=== PATIENT | male | born 1990 | race Caucasian/White ===

== ENCOUNTER 2017-06-15 16:07 | Inpatient (IN) | payer OTHER ==
[~2017-06-15] VITALS: Ht 182.9 cm; Wt 73.4 kg
[2017-06-15] MEDS ORDERED: REGULAR INSULIN 62.5 UNITS in SODIUM CHLORIDE 0.9% 249.375 ML IV PRN ×2 (16:09→18:42)
[2017-06-15] MEDS: PLEASE ENTER ALLERGIES MC SCH (16:30)
[2017-06-15] MEDS ORDERED: SODIUM CHLORIDE 0.9% 1,000ML IVBOLUS ONE ×3 (16:30→20:30)
[2017-06-15 16:35] LABS: FIO2 RA %
[2017-06-15 16:36] LABS: ALANINE AMINOTRANSFERASE 19 U/L (12-78); ALBUMIN 3.9 g/dL (3.4-5.0); ANION GAP 31 mmol/L (5-15); CALCIUM 7.9 mg/dL (8.5-10.1); CHLORIDE 94 mmol/L (98-107)
[2017-06-15 16:39] LABS: ALKALINE PHOSPHATASE 221 U/L (45-117); BILIRUBIN,TOTAL 0.5 mg/dL (0.2-1.0); CREATININE 2.71 mg/dL (0.7-1.3); TOTAL PROTEIN 7.6 g/dL (6.4-8.2)
[2017-06-15 16:50] LABS: MD YES; MEAN CORPUSCULAR HEMOGLOBIN 31.7 pg (27.5-34.5); MEAN CORPUSCULAR HGB CONC 31.9 g/dL (33.2-36.2); MEAN CORPUSCULAR VOLUME 99.4 fL (81-97); MEAN PLATELET VOLUME 14.1 fL (7.4-10.4); PLATELET COUNT 367 x10^3/uL (130-400); RED CELL DISTRIBUTION WIDTH 13.1 % (9.4-14.8)
[2017-06-15 16:58] LABS: BAND#(MANUAL) 7.77 x10^3/uL; BANDS%(MANUAL) 13 % (0-7); EOS% (MANUAL) 1 % (1-7); LYMPH#(MANUAL) 2.99 x10^3/uL (1-3.4); LYMPHS% (MANUAL) 5 % (22-44); METAMYELOCYTES% (MANUAL) 1 % (0-1); MONOS#(MANUAL) 4.19 x10^3/uL (0.3-2.7); MONOS% (MANUAL) 7 % (2-9); MYELOCYTES% (MANUAL) 1 % (0-0); PMNS WITH VACUOLES 1+; SEG#(MANUAL) 43.06 x10^3/uL (1.8-6.8); SEGS% (MANUAL) 72 % (42-75)
[2017-06-15 16:59] LABS: <PLATELET ESTIMATE> ADEQUATE; LARGE PLATELETS 1+
[2017-06-15 17:03] LABS: ACETONE, SERUM Large (80mg/dL) mg/dL (Negative)
[2017-06-15 17:15] LABS: AMPHETAMINE SCREEN, URINE Negative (Negative); BARBITURATE SCREEN, URINE Negative (Negative); BENZODIAZEPINE SCREEN, URINE Negative (Negative); CANNABINOID SCREEN, URINE Negative (Negative); COCAINE SCREEN, URINE Negative (Negative); METHADONE SCREEN, URINE Negative (Negative); OPIATE SCREEN, URINE Negative (Negative)
[2017-06-15] MEDS ORDERED: SODIUM CHLORIDE 0.9% 1,000 ML IV SCH (17:30)
[2017-06-15 17:33] LABS: MICROSCOPIC INDICATED
[2017-06-15 17:40] LABS: CULTURE INDICATED? NO
[2017-06-15 18:11] LABS: FIO2 RA %
[2017-06-15 18:23] LABS: CALCIUM 6.7 mg/dL (8.5-10.1); CHLORIDE 105 mmol/L (98-107)
[2017-06-15 18:59] LABS: ANION GAP 29 mmol/L (5-15)
[2017-06-15] MEDS ORDERED: DOCUSATE 100 MG CAPSULE PO PRN (19:00)
[2017-06-15] MEDS ORDERED: PROMETHAZINE 25 MG/ML, 1ML IM PRN (19:00)
[2017-06-15] MEDS ORDERED: POLYETHYLENE GLYCOL 17 GM PACKET PO PRN (19:00)
[2017-06-15] MEDS ORDERED: OXYcodone IR 5MG TABLET PO PRN (19:00)
[2017-06-15] MEDS ORDERED: ACETAMINOPHEN 325 MG TABLET PO PRN (19:00)
[2017-06-15] MEDS ORDERED: morphine SULFATE 10 MG/ML, 1ML IVPush PRN (19:00)
[2017-06-15] MEDS ORDERED: SODIUM POLY SULFONATE UDC 15 GM/60 ML PO ONE (19:30)
[2017-06-15] MEDS ORDERED: CALCIUM CHLORIDE 10%, 10ML SYR IVPush ONE (19:30)
[2017-06-15 20:09] LABS: HEMOGLOBIN A1C 11.5 % (4.2-6.3)
[2017-06-15] MEDS: SODIUM CHLORIDE 0.9% 1,000 ML IV SCH ×2 (20:35→23:09)
[2017-06-15] MEDS: METRONIDAZOLE PMX 500MG/100ML 100 ML IV SCH (20:35)
[2017-06-15 20:58] LABS: ANION GAP 27 mmol/L (5-15); CALCIUM 6.8 mg/dL (8.5-10.1); CHLORIDE 106 mmol/L (98-107); CREATININE 2.18 mg/dL (0.7-1.3)
[2017-06-15] MEDS: HEPARIN 5,000 UNITS/ML, 1ML SQ SCH (21:19)
[2017-06-15] MEDS ORDERED: SODIUM BICARBONATE 1 MEQ/ML, 50ML VIAL ONE (21:23)
[2017-06-15] MEDS ORDERED: SODIUM BICARB 8.4%, 50ML SYRINGE IVPush ONE (21:30)
[2017-06-15] MEDS: CEFTRIAXONE PMX 1GM/50ML 50 ML IV SCH (22:14)
[2017-06-16] MEDS: FAMOTIDINE 20 MG TABLET PO SCH ×2 (00:11→09:41)
[2017-06-16] MEDS: PLEASE ENTER ALLERGIES MC SCH (00:30)
[2017-06-16 01:54] LABS: ANION GAP 24 mmol/L (5-15); CALCIUM 7.3 mg/dL (8.5-10.1); CHLORIDE 117 mmol/L (98-107); CREATININE 2.21 mg/dL (0.7-1.3)
[2017-06-16 02:15] VITALS: BP 102/51
[2017-06-16] MEDS: ONDANSETRON 2MG/ML, 2ML IVPush PRN ×3 (02:49→20:16)
[2017-06-16] MEDS: METRONIDAZOLE PMX 500MG/100ML 100 ML IV SCH ×4 (02:52→20:18)
[2017-06-16] MEDS: SODIUM CHLORIDE 0.9% 1,000 ML IV SCH (03:25)
[2017-06-16 03:59] VITALS: BP 115/76
[2017-06-16] MEDS: HEPARIN 5,000 UNITS/ML, 1ML SQ SCH ×3 (04:14→20:16)
[2017-06-16 05:07] LABS: CHLORIDE 121 mmol/L (98-107)
[2017-06-16 05:27] LABS: ALANINE AMINOTRANSFERASE 12 U/L (12-78); ALBUMIN 2.7 g/dL (3.4-5.0); ALKALINE PHOSPHATASE 87 U/L (45-117); ANION GAP 18 mmol/L (5-15); BILIRUBIN,TOTAL 0.5 mg/dL (0.2-1.0); CALCIUM 7.1 mg/dL (8.5-10.1); CHOL/HDL RATIO 2.3; CHOLESTEROL, TOTAL 81 mg/dL (140-239); CREATININE 2.17 mg/dL (0.7-1.3); HDL CHOL % 44 % (26-37); HDL CHOLESTEROL (DIRECT) 36 mg/dL (40-60); LDL CHOLESTEROL,CALCULATED 13 mg/dL (54-169); LDL/HDL RATIO 0.4 (0.5-3.0); TOTAL PROTEIN 5.4 g/dL (6.4-8.2); TRIGLYCERIDES 158 mg/dL (50-200); VLDL CHOLESTEROL 32 mg/dL (0-25)
[2017-06-16 05:57] LABS: MEAN CORPUSCULAR HEMOGLOBIN 32.5 pg (27.5-34.5); MEAN CORPUSCULAR HGB CONC 34.2 g/dL (33.2-36.2); MEAN PLATELET VOLUME 11.8 fL (7.4-10.4); PLATELET COUNT 168 x10^3/uL (130-400); RED BLOOD COUNT 4.45 x10^6/uL (4.38-5.82); RED CELL DISTRIBUTION WIDTH 12.6 % (9.4-14.8)
[2017-06-16 06:19] LABS: MD YES
[2017-06-16 06:22] LABS: BAND#(MANUAL) 4.09 x10^3/uL; BANDS%(MANUAL) 18 % (0-7); LYMPH#(MANUAL) 0.23 x10^3/uL (1-3.4); LYMPHS% (MANUAL) 1 % (22-44); METAMYELOCYTES# (MANUAL) 0.68 x10^3/uL (0-0); METAMYELOCYTES% (MANUAL) 3 % (0-1); MONOS#(MANUAL) 2.04 x10^3/uL (0.3-2.7); MONOS% (MANUAL) 9 % (2-9); SEG#(MANUAL) 15.66 x10^3/uL (1.8-6.8); SEGS% (MANUAL) 69 % (42-75)
[2017-06-16 06:25] LABS: <PLATELET ESTIMATE> ADEQUATE; <RBC MORPHOLOGY> NORMAL
[2017-06-16 06:26] LABS: <PLT MORPHOLOGY> NORMAL PLT MORPH
[2017-06-16] MEDS ORDERED: POTASSIUM PHOSPHATE 22 MEQ in SODIUM CHLORIDE 0.9% 500 ML IV ONE (07:00)
[2017-06-16] MEDS: SENNA/DOCUSATE TABLET PO SCH (09:00)
[2017-06-16 09:22] LABS: FIO2 ROOM AIR %
[2017-06-16 09:28] LABS: ANION GAP 9 mmol/L (5-15); CALCIUM 6.9 mg/dL (8.5-10.1); CHLORIDE 125 mmol/L (98-107); CREATININE 2.43 mg/dL (0.7-1.3)
[2017-06-16] MEDS: D5%-0.45NACL+KCL 20MEQ 1,000 ML IV SCH ×2 (09:40→16:53)
[2017-06-16] MEDS: POTASSIUM CHLORIDE 20 MEQ TAB.ER.PRT PO SCH ×2 (09:41→16:53)
[2017-06-16] MEDS ORDERED: POTASSIUM CHLORIDE 20 MEQ TAB.ER.PRT PO ONE ×2 (11:00→18:00)
[2017-06-16 13:07] LABS: ANION GAP 10 mmol/L (5-15); CALCIUM 7.1 mg/dL (8.5-10.1); CHLORIDE 124 mmol/L (98-107); CREATININE 2.46 mg/dL (0.7-1.3)
[2017-06-16] MEDS: REGULAR INSULIN 62.5 UNITS in SODIUM CHLORIDE 0.9% 249.375 ML IV PRN (13:27)
[2017-06-16 17:41] LABS: ANION GAP 14 mmol/L (5-15); CALCIUM 6.8 mg/dL (8.5-10.1); CHLORIDE 122 mmol/L (98-107); CREATININE 2.36 mg/dL (0.7-1.3)
[2017-06-16] MEDS: CEFTRIAXONE PMX 1GM/50ML 50 ML IV SCH (20:18)
[2017-06-16 21:27] LABS: ANION GAP 14 mmol/L (5-15); CALCIUM 6.6 mg/dL (8.5-10.1); CHLORIDE 117 mmol/L (98-107); CREATININE 2.35 mg/dL (0.7-1.3)
[2017-06-16] MEDS ORDERED: POTASSIUM CHLORIDE 40 MEQ in SODIUM CHLORIDE 0.9% 500 ML IV ONE (22:30)
[2017-06-17 01:36] LABS: ANION GAP 12 mmol/L (5-15); CALCIUM 6.7 mg/dL (8.5-10.1); CHLORIDE 120 mmol/L (98-107); CREATININE 2.31 mg/dL (0.7-1.3)
[2017-06-17 02:19] LABS: CLOSTRIDIUM DIFFICILE ANTIGEN NEGATIVE; CLOSTRIDIUM DIFFICILE TOXIN NEGATIVE (Negative)
[2017-06-17] MEDS: METRONIDAZOLE PMX 500MG/100ML 100 ML IV SCH ×4 (02:23→20:55)
[2017-06-17] MEDS: D5%-0.45NACL+KCL 20MEQ 1,000 ML IV SCH ×2 (02:23→09:53)
[2017-06-17] MEDS: HEPARIN 5,000 UNITS/ML, 1ML SQ SCH ×2 (02:25→10:47)
[2017-06-17] MEDS ORDERED: POTASSIUM CHLORIDE 40 MEQ in SODIUM CHLORIDE 0.9% 500 ML IV ONE (03:00)
[2017-06-17] MEDS: REGULAR INSULIN 62.5 UNITS in SODIUM CHLORIDE 0.9% 249.375 ML IV PRN (03:24)
[2017-06-17 05:07] LABS: MEAN CORPUSCULAR HGB CONC 34.6 g/dL (33.2-36.2); MEAN CORPUSCULAR VOLUME 95.2 fL (81-97); MEAN PLATELET VOLUME 11.8 fL (7.4-10.4); PLATELET COUNT 135 x10^3/uL (130-400); RED BLOOD COUNT 3.85 x10^6/uL (4.38-5.82); RED CELL DISTRIBUTION WIDTH 13.2 % (9.4-14.8)
[2017-06-17 05:12] LABS: ANION GAP 8 mmol/L (5-15); CALCIUM 6.6 mg/dL (8.5-10.1); CHLORIDE 125 mmol/L (98-107); CREATININE 2.25 mg/dL (0.7-1.3)
[2017-06-17 05:45] LABS: MD YES
[2017-06-17 05:46] LABS: BAND#(MANUAL) 0.31 x10^3/uL; BANDS%(MANUAL) 2 % (0-7); LYMPH#(MANUAL) 1.25 x10^3/uL (1-3.4); LYMPHS% (MANUAL) 8 % (22-44); MONOS#(MANUAL) 1.09 x10^3/uL (0.3-2.7); MONOS% (MANUAL) 7 % (2-9); SEG#(MANUAL) 12.95 x10^3/uL (1.8-6.8); SEGS% (MANUAL) 83 % (42-75)
[2017-06-17 05:47] LABS: <RBC MORPHOLOGY> NORMAL
[2017-06-17 05:48] LABS: <PLATELET ESTIMATE> ADEQUATE; LARGE PLATELETS 1+
[2017-06-17] MEDS: SENNA/DOCUSATE TABLET PO SCH (07:35)
[2017-06-17 09:11] LABS: ANION GAP 13 mmol/L (5-15); CALCIUM 6.6 mg/dL (8.5-10.1); CHLORIDE 119 mmol/L (98-107); CREATININE 2.17 mg/dL (0.7-1.3)
[2017-06-17 13:20] LABS: ANION GAP 10 mmol/L (5-15); CALCIUM 6.7 mg/dL (8.5-10.1); CHLORIDE 121 mmol/L (98-107); CREATININE 2.41 mg/dL (0.7-1.3)
[2017-06-17] MEDS ORDERED: POTASSIUM CHLORIDE 20 MEQ PACKET PO ONE (14:00)
[2017-06-17 17:01] LABS: CRYPTOSPORIDIUM ANTIGEN Negative (Negative)
[2017-06-17 17:11] LABS: ANION GAP 9 mmol/L (5-15); CALCIUM 6.9 mg/dL (8.5-10.1); CHLORIDE 123 mmol/L (98-107); CREATININE 2.19 mg/dL (0.7-1.3)
[2017-06-17] MEDS ORDERED: ASPIRIN 81 MG TABLET CHEW ONE (17:32)
[2017-06-17] MEDS ORDERED: METOPROLOL TARTRATE 25 MG TABLET ONE (17:32)
[2017-06-17] MEDS: METOPROLOL TARTRATE 25 MG TABLET PO SCH (17:35)
[2017-06-17] MEDS: ASPIRIN 81 MG TABLET CHEW PO SCH (17:36)
[2017-06-17] MEDS ORDERED: HEPARIN 5,000 UNITS/ML, 1ML IV PRN (18:00)
[2017-06-17] MEDS ORDERED: HEPARIN 25,000 UNITS/500ML PMX 500 ML IV PRN (18:00)
[2017-06-17] MEDS ORDERED: POTASSIUM CHLORIDE 10% 40 MEQ/30 ML UDC PO ONE (18:00)
[2017-06-17] MEDS: INSULIN LISPRO 100 UNITS/ML, PEN SQ-INSULIN SCH ×2 (18:00→20:58)
[2017-06-17] MEDS ORDERED: HEPARIN 5,000 UNITS/ML, 1ML IV ONE (18:00)
[2017-06-17] MEDS: SODIUM BICARB 8.4%,50ML SYR. 50 MEQ in SODIUM CHLORIDE 0.45% 1,000 ML IV SCH (18:09)
[2017-06-17] MEDS: ONDANSETRON 2MG/ML, 2ML IVPush PRN (18:12)
[2017-06-17] MEDS ORDERED: POTASSIUM CHLORIDE 10% 20 MEQ/15 ML UDC PO ONE (18:30)
[2017-06-17] MEDS: ATORVASTATIN 20 MG TABLET PO SCH (20:55)
[2017-06-17] MEDS: INSULIN DETEMIR 100 UNITS/ML, PEN SQ-INSULIN SCH (20:57)
[2017-06-17] MEDS ORDERED: INSULIN GLARGINE 100 UNITS/ML, PEN SQ-INSULIN SCH (21:00)
[2017-06-17 21:47] LABS: ANION GAP 15 mmol/L (5-15); CHLORIDE 116 mmol/L (98-107); CREATININE 2.02 mg/dL (0.7-1.3)
[2017-06-18 01:05] LABS: ANION GAP 12 mmol/L (5-15); CHLORIDE 116 mmol/L (98-107); CREATININE 2.18 mg/dL (0.7-1.3)
[2017-06-18] MEDS: METRONIDAZOLE PMX 500MG/100ML 100 ML IV SCH ×4 (02:39→20:27)
[2017-06-18 04:21] LABS: MEAN CORPUSCULAR HEMOGLOBIN 32.7 pg (27.5-34.5); MEAN CORPUSCULAR HGB CONC 34.5 g/dL (33.2-36.2); MEAN CORPUSCULAR VOLUME 94.8 fL (81-97); MEAN PLATELET VOLUME 12.9 fL (7.4-10.4); PLATELET COUNT 116 x10^3/uL (130-400); RED CELL DISTRIBUTION WIDTH 13.1 % (9.4-14.8)
[2017-06-18 04:28] LABS: ANION GAP 11 mmol/L (5-15); CALCIUM 6.5 mg/dL (8.5-10.1); CHLORIDE 119 mmol/L (98-107); CREATININE 2.07 mg/dL (0.7-1.3)
[2017-06-18] MEDS: SODIUM BICARB 8.4%,50ML SYR. 50 MEQ in SODIUM CHLORIDE 0.45% 1,000 ML IV SCH ×2 (04:41→16:33)
[2017-06-18 05:23] LABS: BASOPHILS # (AUTO) 0.02 x10^3/uL (0-0.1); BASOPHILS % (AUTO) 0 % (0-1); EOSINOPHILS # (AUTO) 0.01 x10^3/uL (0-0.4); EOSINOPHILS % (AUTO) 0 % (1-7); LYMPHOCYTES # (AUTO) 1.86 x10^3/uL (1-3.4); LYMPHOCYTES % (AUTO) 16 % (22-44); MD SCAN; MONOCYTES # (AUTO) 1.57 x10^3/uL (0.2-0.8); MONOCYTES % (AUTO) 13 % (2-9); NEUTROPHILS # (AUTO) 8.31 x10^3/uL (1.8-6.8); NEUTROPHILS % (AUTO) 71 % (42-75)
[2017-06-18] MEDS: METOPROLOL TARTRATE 25 MG TABLET PO SCH ×2 (06:02→18:14)
[2017-06-18] MEDS: SENNA/DOCUSATE TABLET PO SCH (07:22)
[2017-06-18] MEDS ORDERED: CLOPIDOGREL 75 MG TABLET ONE (07:31)
[2017-06-18] MEDS: ASPIRIN 81 MG TABLET CHEW PO SCH (07:38)
[2017-06-18] MEDS: INSULIN DETEMIR 100 UNITS/ML, PEN SQ-INSULIN SCH (07:39)
[2017-06-18] MEDS: INSULIN LISPRO 100 UNITS/ML, PEN SQ-INSULIN SCH ×4 (07:39→20:40)
[2017-06-18] MEDS ORDERED: POTASSIUM CHLORIDE 20 MEQ TAB.ER.PRT PO SCH (08:00)
[2017-06-18 08:33] LABS: CRYPTOSPORIDIUM ANTIGEN Negative (Negative)
[2017-06-18] MEDS ORDERED: POTASSIUM CHLORIDE 10% 20 MEQ/15 ML UDC ONE (08:44)
[2017-06-18] MEDS: CLOPIDOGREL 75 MG TABLET PO SCH (08:57)
[2017-06-18] MEDS ORDERED: POTASSIUM CHLORIDE 10% 40 MEQ/30 ML UDC PO ONE ×2 (09:00→17:00)
[2017-06-18] MEDS: ONDANSETRON 2MG/ML, 2ML IVPush PRN (09:00)
[2017-06-18 14:08] VITALS: BP 116/80
[2017-06-18] MEDS ORDERED: POTASSIUM CHLORIDE 20 MEQ TAB.ER.PRT ONE (17:17)
[2017-06-18] MEDS ORDERED: POTASSIUM CHLORIDE 20 MEQ TAB.ER.PRT PO ONE ×2 (17:30→19:30)
[2017-06-18] MEDS: POTASSIUM CHLORIDE 20 MEQ PACKET PO SCH ×2 (18:19→19:16)
[2017-06-18 19:36] VITALS: BP 111/75
[2017-06-18] MEDS: ATORVASTATIN 20 MG TABLET PO SCH (20:27)
[2017-06-18] MEDS: INSULIN GLARGINE 100 UNITS/ML, PEN SQ-INSULIN SCH (21:19)
[2017-06-19] MEDS: METRONIDAZOLE PMX 500MG/100ML 100 ML IV SCH ×3 (01:32→14:29)
[2017-06-19 02:59] VITALS: BP 101/65
[2017-06-19] MEDS: SODIUM BICARB 8.4%,50ML SYR. 50 MEQ in SODIUM CHLORIDE 0.45% 1,000 ML IV SCH (04:43)
[2017-06-19 05:11] LABS: ALANINE AMINOTRANSFERASE 21 U/L (12-78); ALBUMIN 2.1 g/dL (3.4-5.0); ANION GAP 7 mmol/L (5-15); CALCIUM 6.7 mg/dL (8.5-10.1); CHLORIDE 119 mmol/L (98-107)
[2017-06-19 05:16] LABS: ALKALINE PHOSPHATASE 58 U/L (45-117); BILIRUBIN,TOTAL 0.8 mg/dL (0.2-1.0); CREATININE 1.71 mg/dL (0.7-1.3); TOTAL PROTEIN 4.2 g/dL (6.4-8.2)
[2017-06-19] MEDS: METOPROLOL TARTRATE 25 MG TABLET PO SCH (05:44)
[2017-06-19] MEDS: INSULIN LISPRO 100 UNITS/ML, PEN SQ-INSULIN SCH ×2 (07:00→13:16)
[2017-06-19] MEDS: SENNA/DOCUSATE TABLET PO SCH (07:37)
[2017-06-19] MEDS: ASPIRIN 81 MG TABLET CHEW PO SCH (08:01)
[2017-06-19] MEDS: CLOPIDOGREL 75 MG TABLET PO SCH (08:01)
[2017-06-19] MEDS: INSULIN GLARGINE 100 UNITS/ML, PEN SQ-INSULIN SCH (08:03)
[2017-06-19 08:31] VITALS: BP 121/75
[2017-06-19] MEDS ORDERED: NITAZOXANIDE 500 MG PO SCH (09:00)
[2017-06-19 13:15] VITALS: BP 114/74
[2017-06-19] MEDS ORDERED: POTASSIUM CHLORIDE 20 MEQ TAB.ER.PRT PO ONE (14:30)
[2017-06-19] MEDS ORDERED: DOCU-131 PO (14:43)
[2017-06-19] MEDS ORDERED: POLY17PO5 PO (14:43)
[2017-06-19] MEDS ORDERED: ATOR20TA9 PO (14:43)
[2017-06-19] MEDS ORDERED: ASPI-515 PO (14:43)
[2017-06-19] MEDS ORDERED: METO25TA35 PO (14:43)
[2017-06-19] MEDS ORDERED: INSU100I13 SQ-INSULIN (14:43)
[2017-06-19] MEDS ORDERED: INSU100I11 SQ-INSULIN (14:43)
[2017-06-19] MEDS ORDERED: CLOP75TA PO (14:43)
[2017-06-19] MEDS ORDERED: NITA500T2 PO (14:43)
== END 2017-06-19 15:20 | disposition short-term general hospital (02) | DRG 871 ==
LOC: ED 17:00 → EDIP 17:01 → ED 17:19 → CCU 18:54 → 5SO 06-18 13:58
PROVIDERS: ADMIT Internal Medicine; ATTEND Family Medicine
PROC: 0T9B70Z Drainage of Bladder with Drainage Device, Via Natural or Artificial Opening (ICD-10-PCS; principal; 2017-06-15)
DX: A41.9 Sepsis, unspecified organism (principal); E10.11 Type 1 diabetes mellitus with ketoacidosis with coma; I21.9 Acute myocardial infarction, unspecified; N17.0 Acute kidney failure with tubular necrosis; G93.41 Metabolic encephalopathy; K85.90 Acute pancreatitis without necrosis or infection, unspecified; A07.2 Cryptosporidiosis; E87.1 Hypo-osmolality and hyponatremia; I31.9 Disease of pericardium, unspecified; E83.42 Hypomagnesemia; E83.52 Hypercalcemia; E86.0 Dehydration; E87.5 Hyperkalemia; E87.6 Hypokalemia; R65.20 Severe sepsis without septic shock; Z79.4 Long term (current) use of insulin; Z87.891 Personal history of nicotine dependence
CPT/HCPCS: 36415; 36600; 71045; 74176; 80048; 80053; 80061; 80074; 80307; 81001; 82010; 82550; 82803; 82947; 82962; 83036; 83605; 83690; 83735; 84100; 84484; 85025; 85520; 86592; 86703; 87040; 87046; 87081; 87324; 87328; 87329; 87899; 89055; 93005; 93306; 96374; 96375; J0696; J1644; J1815; J2405; J3480; G0435; J7030; J7040; J7050